=== PATIENT | male | born 1930 | race Caucasian/White ===

== ENCOUNTER 2016-08-31 11:43 | Emergency (ER) | payer OTHER ==
[~2016-08-31 11:43] MED LIST: ASPI1TAB PO; ASPI325T PO; ATEN25TA PO; CYAN25TA PO; SIMV10TA2 PO; TYLE325T5 PO; VITA100066 PO; VITATAB11 PO; nitroquick SL
--- NOTE | 2016-08-31 12:41 | EDDOCDS ---
Physician Documentation [facility] Name: Johnson Dockery Age: 85 yrs Sex: Male : 1930 Arrival Date: 08/31/2016 Time: 11:43 Bed Triage 1 Private MD: Abel Diaz A. Disposition: 08/31/16 12:31 Discharged to Home/Self Care. Impression: Encounter for change or removal of nonsurgical wound dressing. - Condition is Stable. - Discharge Instructions: Dressing Change, Wound Check. - Medication Reconciliation, Local Pharmacy Hours form. - Follow up: Toni Roman MD; When: Tomorrow; Reason: Recheck today's complaints, Continuance of care. Follow up: Emergency Department; When: As needed; Reason: Worsening of conditions. - Problem is new. - Symptoms are unchanged. - Notes: If you are unable to see Dr Roman tomorrow, please return to the ER for re-evaluation. Historical: - Allergies: Plavix; - Home Meds: 1. aspirin 325 mg Oral tab 1 tab once daily 2. atenolol 25 mg Oral tab 1 tab once daily 3. simvastatin 10 mg Oral tab 1 tab once daily 4. vitamin B complex oral cap 1 cap daily 5. Vitamin D Oral 2000 unit daily - PMHx: AAA; Hypercholesterolemia; Hypertension; [place] (1991); - PSHx: bilateral hernia repair; AAA Repair; pilonidal cyst; Pacemaker Insertion; - Social history: Smoking status: Patient/guardian denies using No barriers to communication noted, The patient speaks fluent Czech. - : The pt / caregiver states he / she is not on anticoagulants. Home medication list is obtained from the patient. - Exposure Risk Screening:: None identified. Vital Signs: 08/31 11:45 BP 151 / 71; Pulse 75; Resp 18 S; Temp 94.5(T); Pulse Ox 99% on R/A; Weight 62.6 kg / gr2 138.01 lbs (R); Height 6 ft. 0 in. (182.88 cm) (R); Pain 3/10; 11:45 Body Mass Index 18.72 (62.60 kg, 182.88 cm) gr2 Signatures: Adeola Roberson RN RN Sneha Burks RN RN dls Mich, Zach, PA-C PA-C dk1 KEYSHAD
--- NOTE | 2016-08-31 12:41 | EDDOCDS ---
Nurse's Notes [facility] [place] Name: Johnson Dockery Age: 85 yrs Sex: Male : 1930 Arrival Date: 08/31/2016 Time: 11:43 Bed Triage 1 Private MD: Abel Diaz A. Diagnosis: Encounter for change or removal of nonsurgical wound dressing Presentation: 08/31 11:54 Presenting complaint: Patient states: Pt has hx of pilonidal cyst November 2014 2 weeks dls ago noticed blood in underwear has open draining wound ?. Adult Sepsis Screening: The patient does not have new or worsening altered mentation. Patient's respiratory rate is less than 22. Systolic blood pressure is greater than 100. Patient has a qSOFA score of 0- Negative Sepsis Screen. Suicide/Homicide risk assessment- the patient denies having any suicidal and/or homicidal ideations and does not present with any other emotional, behavioral or mental health complaints. 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 Transition of care: patient was not received from another setting of care. 11:54 Acuity: BRANDY Level 3 dls 11:54 Method Of Arrival: Walkin/Carried/Asstd dls Triage Assessment: 11:58 General: Appears in no apparent distress, well nourished, well groomed, Behavior is dls cooperative. Pain: Pain currently is 4 out of 10 on a pain scale. Historical: - Allergies: Plavix; - Home Meds: 1. aspirin 325 mg Oral tab 1 tab once daily 2. atenolol 25 mg Oral tab 1 tab once daily 3. simvastatin 10 mg Oral tab 1 tab once daily 4. vitamin B complex oral cap 1 cap daily 5. Vitamin D Oral 2000 unit daily - PMHx: AAA; Hypercholesterolemia; Hypertension; [place] (1991); - PSHx: bilateral hernia repair; AAA Repair; pilonidal cyst; Pacemaker Insertion; - Social history: Smoking status: Patient/guardian denies using No barriers to communication noted, The patient speaks fluent Libyan. - : The pt / caregiver states he / she is not on anticoagulants. Home medication list is obtained from the patient. - Exposure Risk Screening:: None identified. Vital Signs: 11:45 BP 151 / 71; Pulse 75; Resp 18 S; Temp 94.5(T); Pulse Ox 99% on R/A; Weight 62.6 kg gr2 (R); Height 6 ft. 0 in. (182.88 cm) (R); Pain 310; 11:45 Body Mass Index 18.72 (62.60 kg, 182.88 cm) gr2 Vitals: 11:45 Log In Time: August 31, 2016 at 11:45. gr2 ED Course: 11:44 Patient visited by Dae Harmon. gr2 11:44 Patient moved to Waiting gr2 11:45 Abel Diaz is Private Physician. gr2 11:47 Patient visited by Dae Harmon. gr2 11:47 Patient moved to Pre RCE gr2 11:56 Triage Initiated dls 12:08 Patient moved to Triage 1 ct3 12:18 Zach Epps PA-C is PHCP. dk1 12:18 Madiha Crowley MD is Attending Physician. dk1 12:18 Patient visited by Zach Epps PA-C. dk1 12:28 Wound care 2x2 and Telfa applied to open area on coccyx. kcs 12:30 Toni Roman MD is Referral Physician. dk1 Order Results: There are currently no results for this order. Outcome: 12:31 Discharge ordered by Provider. dk1 12:41 Patient left the ED. kcs Signatures: Adeola Roberson RN RN Sneha Burks RN RN dls Keyes, David, PA-C PA-C dk1 Missy Zavaleta, YARD HAND YARD HAND ct3 Dae Harmon gr2 MTDD
--- NOTE | 2016-09-02 13:41 | EDDOCDS ---
Physician Documentation [facility] Name: Johnson Dockery Age: 85 yrs Sex: Male : 1930 Arrival Date: 08/31/2016 Time: 11:43 Bed Triage 1 Private MD: Abel Diaz A. Disposition: 08/31/16 12:31 Discharged to Home/Self Care. Impression: Encounter for change or removal of nonsurgical wound dressing. - Condition is Stable. - Discharge Instructions: Dressing Change, Wound Check. - Medication Reconciliation, Local Pharmacy Hours form. - Follow up: Toni Roman MD; When: Tomorrow; Reason: Recheck today's complaints, Continuance of care. Follow up: Emergency Department; When: As needed; Reason: Worsening of conditions. - Problem is new. - Symptoms are unchanged. - Notes: If you are unable to see Dr Roman tomorrow, please return to the ER for re-evaluation. Historical: - Allergies: Plavix; - Home Meds: 1. aspirin 325 mg Oral tab 1 tab once daily 2. atenolol 25 mg Oral tab 1 tab once daily 3. simvastatin 10 mg Oral tab 1 tab once daily 4. vitamin B complex oral cap 1 cap daily 5. Vitamin D Oral 2000 unit daily - PMHx: AAA; Hypercholesterolemia; Hypertension; [place] (1991); - PSHx: bilateral hernia repair; AAA Repair; pilonidal cyst; Pacemaker Insertion; - Social history: Smoking status: Patient/guardian denies using No barriers to communication noted, The patient speaks fluent Tajik. - Family history: Not pertinent. - : The pt / caregiver states he / she is not on anticoagulants. Home medication list is obtained from the patient. - Exposure Risk Screening:: None identified. Vital Signs: 08/31 11:45 BP 151 / 71; Pulse 75; Resp 18 S; Temp 94.5(T); Pulse Ox 99% on R/A; Weight 62.6 kg / gr2 138.01 lbs (R); Height 6 ft. 0 in. (182.88 cm) (R); Pain 3/10; 11:45 Body Mass Index 18.72 (62.60 kg, 182.88 cm) gr2 MDM: 15:06 [facility] Payment Agreement was scanned into [employer] and attached to record. lg 09/01 02:22 T-Sheet-- Draft Copy was scanned into [employer] and attached to record. marietta 02:23 Financial registration complete. marietta Signatures: Adeola Roberson RN RN Sneha Burks RN RN dls Claudette Hu, Reg Reg lg Mich, Zach, PARenéeC PARenéeC dk1 Arel, Nissa mcmanus The chart was reviewed and I authenticate all verbal orders and agree with the evaluation and treatment provided.Attachments: 08/31 15:06 [facility] [place] Agreement 09/01 02:22 T-Sheet-- Draft Copy marietta Chart Complete MTDD
--- NOTE | 2016-09-02 13:41 | EDDOCDS ---
Physician Documentation [facility] Name: Johnson Dockery Age: 85 yrs Sex: Male : 1930 Arrival Date: 08/31/2016 Time: 11:43 Bed Triage 1 Private MD: Abel Diaz A. Disposition: 08/31/16 12:31 Discharged to Home/Self Care. Impression: Encounter for change or removal of nonsurgical wound dressing. - Condition is Stable. - Discharge Instructions: Dressing Change, Wound Check. - Medication Reconciliation, Local Pharmacy Hours form. - Follow up: Toni Roman MD; When: Tomorrow; Reason: Recheck today's complaints, Continuance of care. Follow up: Emergency Department; When: As needed; Reason: Worsening of conditions. - Problem is new. - Symptoms are unchanged. - Notes: If you are unable to see Dr Roman tomorrow, please return to the ER for re-evaluation. Historical: - Allergies: Plavix; - Home Meds: 1. aspirin 325 mg Oral tab 1 tab once daily 2. atenolol 25 mg Oral tab 1 tab once daily 3. simvastatin 10 mg Oral tab 1 tab once daily 4. vitamin B complex oral cap 1 cap daily 5. Vitamin D Oral 2000 unit daily - PMHx: AAA; Hypercholesterolemia; Hypertension; [place] (1991); - PSHx: bilateral hernia repair; AAA Repair; pilonidal cyst; Pacemaker Insertion; - Social history: Smoking status: Patient/guardian denies using No barriers to communication noted, The patient speaks fluent Albanian. - Family history: Not pertinent. - : The pt / caregiver states he / she is not on anticoagulants. Home medication list is obtained from the patient. - Exposure Risk Screening:: None identified. Vital Signs: 08/31 11:45 BP 151 / 71; Pulse 75; Resp 18 S; Temp 94.5(T); Pulse Ox 99% on R/A; Weight 62.6 kg / gr2 138.01 lbs (R); Height 6 ft. 0 in. (182.88 cm) (R); Pain 3/10; 11:45 Body Mass Index 18.72 (62.60 kg, 182.88 cm) gr2 MDM: 15:06 [facility] Payment Agreement was scanned into MEDHOST and attached to record. lg 09/01 02:22 T-Sheet-- Draft Copy was scanned into [employer] and attached to record. marietta 02:23 Financial registration complete. marietta Signatures: Adeola Roberson RN RN Sneha Burks RN RN dls Claudette Hu, Reg Reg lg Mich, Zach, PARenéeC PARenéeC dk1 Arel, Nissa mcmanus The chart was reviewed and I authenticate all verbal orders and agree with the evaluation and treatment provided.Attachments: 08/31 15:06 [facility] [place] Payment Agreement 09/01 02:22 T-Sheet-- Draft Copy marietta Chart Complete MTDD
--- NOTE | 2016-09-02 13:41 | EDDOCDS ---
Nurse's Notes [facility] Name: Johnson Dockery Age: 85 yrs Sex: Male : 1930 Arrival Date: 08/31/2016 Time: 11:43 Bed Triage 1 Private MD: Abel Diaz A. Diagnosis: Encounter for change or removal of nonsurgical wound dressing Presentation: 08/31 11:54 Presenting complaint: Patient states: Pt has hx of pilonidal cyst November 2014 2 weeks dls ago noticed blood in underwear has open draining wound ?. Adult Sepsis Screening: The patient does not have new or worsening altered mentation. Patient's respiratory rate is less than 22. Systolic blood pressure is greater than 100. Patient has a qSOFA score of 0- Negative Sepsis Screen. Suicide/Homicide risk assessment- the patient denies having any suicidal and/or homicidal ideations and does not present with any other emotional, behavioral or mental health complaints. 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 Transition of care: patient was not received from another setting of care. 11:54 Acuity: BRANDY Level 3 dls 11:54 Method Of Arrival: Walkin/Carried/Asstd dls Triage Assessment: 11:58 General: Appears in no apparent distress, well nourished, well groomed, Behavior is dls cooperative. Pain: Pain currently is 4 out of 10 on a pain scale. Historical: - Allergies: Plavix; - Home Meds: 1. aspirin 325 mg Oral tab 1 tab once daily 2. atenolol 25 mg Oral tab 1 tab once daily 3. simvastatin 10 mg Oral tab 1 tab once daily 4. vitamin B complex oral cap 1 cap daily 5. Vitamin D Oral 2000 unit daily - PMHx: AAA; Hypercholesterolemia; Hypertension; [place] (1991); - PSHx: bilateral hernia repair; AAA Repair; pilonidal cyst; Pacemaker Insertion; - Social history: Smoking status: Patient/guardian denies using No barriers to communication noted, The patient speaks fluent Kuwaiti. - Family history: Not pertinent. - : The pt / caregiver states he / she is not on anticoagulants. Home medication list is obtained from the patient. - Exposure Risk Screening:: None identified. Screenin:30 Screening information is obtained from prior medical records. Fall risk: No risks kcs identified. Assistance ADL's: requires no assistance with activities of daily living. Abuse/DV Screen: The patient / caregiver reports he/she is: not in a situation that causes fear, pain or injury. Nutritional screening: No deficits noted. Advance Directives: Currently, there is no health care proxy. There is no living will. home support is adequate. Assessment: 12:30 Reassessment: Patient states feeling better. General: Appears comfortable, well kcs developed, well nourished, well groomed, Behavior is cooperative, pleasant. Pain: Location: coccyx. Neurological: Level of Consciousness is awake, alert. Respiratory: Airway is patent Respiratory effort is even, unlabored, Respiratory pattern is regular, symmetrical. Derm: Skin is intact, is healthy with good turgor, Skin is dry, Skin is normal. Vital Signs: 11:45 BP 151 / 71; Pulse 75; Resp 18 S; Temp 94.5(T); Pulse Ox 99% on R/A; Weight 62.6 kg gr2 (R); Height 6 ft. 0 in. (182.88 cm) (R); Pain 3/10; 11:45 Body Mass Index 18.72 (62.60 kg, 182.88 cm) gr2 Vitals: 11:45 Log In Time: August 31, 2016 at 11:45. gr2 ED Course: 11:44 Patient visited by Dae Harmon. gr2 11:44 Patient moved to Waiting gr2 11:45 Abel Diaz is Private Physician. gr2 11:47 Patient visited by Dae Harmon. gr2 11:47 Patient moved to Pre RCE gr2 11:56 Triage Initiated dls 12:08 Patient moved to Triage 1 ct3 12:18 Zach Epps PA-C is PHCP. dk1 12:18 Madiha Crowley MD is Attending Physician. dk1 12:18 Patient visited by Zach Epps PA-C. dk1 12:28 Wound care 2x2 and Telfa applied to open area on coccyx. kcs 12:30 Toni Roman MD is Referral Physician. dk1 12:30 The patient / caregiver is instructed regarding the plan of care and ED course. kcs 12:30 No IV's were initiated during this patient's visit. No procedures done that require kcs assistance. 15:06 [facility] Payment Agreement was scanned into [employer] and attached to record. corwin 09/01 02:22 T-Sheet-- Draft Copy was scanned into [employer] and attached to record. marietta Order Results: There are currently no results for this order. Outcome: 08/31 12:30 Discharge Assessment: Patient awake, alert and oriented x 3. No cognitive and/or kcs functional deficits noted. Patient verbalized understanding of disposition instructions. Patient awake and alert. patient administered narcotics - no. The following High Risk Discharge criteria are identified: None. Discharged to home ambulatory, with significant other. Condition: stable. Discharge instructions given to patient, Instructed on discharge instructions, follow up and referral plans. wound care, Demonstrated understanding of instructions, Pt was receptive of discharge instructions/ teaching. No special radiology studies were completed. Property sent home with patient. 12:31 Discharge ordered by Provider. dk1 12:41 Patient left the ED. kcs Signatures: Adeola Roberson, RN RN Sneha Burks RN RN dls Claudette Hu, Reg Reg lg Zach Epps, PA-C PA-C dk1 Missy Zavaleta, [facility] MANAGER ct3 Dae Harmon gr2 Nissa Castañeda Chart Complete MTDD
== END 2016-09-01 00:41 | disposition home or self-care (01) ==
LOC: M ED 11:43
DX: L05.91 Pilonidal cyst without abscess (principal); Z48.00 Encounter for change or removal of nonsurgical wound dressing; I71.4 Abdominal aortic aneurysm, without rupture; I10 Essential (primary) hypertension; I25.2 Old myocardial infarction; Z95.0 Presence of cardiac pacemaker; Z79.82 Long term (current) use of aspirin; Z79.899 Other long term (current) drug therapy; Z88.8 Allergy status to other drugs, medicaments and biological substances

== ENCOUNTER 2016-09-01 10:19 | Emergency (ER) | payer OTHER ==
--- NOTE | 2016-09-01 13:23 | EDDOCDS ---
Nurse's Notes [facility] Name: Johnson Dockery Age: 85 yrs Sex: Male : 1930 Arrival Date: 09/01/2016 Time: 10:19 Bed TR8 Private MD: Abel Diaz A. Diagnosis: Pressure ulcer of contiguous site of back, buttock and hip, stage 2 Presentation: 09/01 10:27 Presenting complaint: Patient states: returning as instructed - seen here yesterday for kcs wound on coccyx - tried to get into Dr. Roman today but was unable. States does not feel any better - feels the area is more red. Adult Sepsis Screening: The patient does not have new or worsening altered mentation. Patient's respiratory rate is less than 22. Systolic blood pressure is greater than 100. Patient has a qSOFA score of 0- Negative Sepsis Screen. Suicide/Homicide risk assessment- the patient denies having any suicidal and/or homicidal ideations and does not present with any other emotional, behavioral or mental health complaints. 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 Transition of care: patient was not received from another setting of care. 10:27 Acuity: BRANDY Level 3 kcs 10:27 Method Of Arrival: Walkin/Carried/Asstd kcs Triage Assessment: 10:29 General: Appears comfortable, slender, well developed, well nourished, well groomed, kcs Behavior is cooperative, pleasant. Pain: Denies pain. Neurological: Level of Consciousness is awake, alert. Respiratory: Airway is patent Respiratory effort is even, unlabored, Respiratory pattern is regular, symmetrical. Derm: Skin is intact, is healthy with good turgor, Skin is dry, Skin is normal. Historical: - Allergies: Plavix; - Home Meds: 1. aspirin 325 mg Oral tab 1 tab once daily 2. atenolol 25 mg Oral tab 1 tab once daily 3. simvastatin 10 mg Oral tab 1 tab once daily 4. vitamin B complex oral cap 1 cap daily 5. Vitamin D Oral 2000 unit daily - PMHx: AAA; Hypercholesterolemia; Hypertension; [place] (1991); - PSHx: bilateral hernia repair; AAA Repair; pilonidal cyst; Pacemaker Insertion; - Social history: Smoking status: Patient states former smoker of tobacco. No barriers to communication noted, The patient speaks fluent Indonesian. - Family history: No immediate family members are acutely ill. - : The pt / caregiver states he / she is not on anticoagulants. Home medication list is obtained from the patient, [employer] import data. - Exposure Risk Screening:: None identified. Screenin:20 Screening information is obtained from the patient. Fall risk: No risks identified. mb9 Assistance ADL's: requires no assistance with activities of daily living. Abuse/DV Screen: The patient / caregiver reports he/she is: not in a situation that causes fear, pain or injury. Nutritional screening: No deficits noted. Advance Directives: There is no active DNR order. home support is adequate. Assessment: 13:20 General: Appears in no apparent distress, Behavior is appropriate for age, cooperative. mb9 Respiratory: Airway is patent Respiratory effort is even, unlabored. Derm: Decubitus located on sacrum approximately 2.6 cm to 7.5 cm is stage II is draining small amount. Vital Signs: 10:21 BP 115 / 58; Pulse 77; Resp 18; Temp 96.9; Pulse Ox 99% ; Weight 61.23 kg; Height 6 ft. cmb 0 in. (182.88 cm); Pain 0/10; 12:50 BP 112 / 61; Pulse 73; Resp 18; Temp 97.8(TE); Pulse Ox 99% on R/A; Pain 1/10; ar3 10:21 Body Mass Index 18.31 (61.23 kg, 182.88 cm) cmb Vitals: 10:21 Log In Time: September 01, 2016 at 10:19. cmb ED Course: 10:20 Patient visited by Libby Hsu. cmb 10:20 Abel Diaz is Private Physician. cmb 10:20 Patient moved to Waiting cmb 10:23 Patient moved to Pre RCE cmb 10:28 Triage Initiated kcs 10:50 Patient moved to Triage 3 ar3 10:54 [facility] ar2 10:54 Shirin Tellez MD is Attending Physician. ar2 10:54 Patient visited by Watson Valle PA-C. ar2 10:54 Marielos Smith CNM is Referral Physician. ar2 11:24 Patient moved to PR2 / ar2 12:45 Hussein Warren is Referral Physician. ar2 12:51 Patient visited by Saima Davis PCA. ar3 13:16 Patient moved to TR8 mb9 13:20 The patient / caregiver is instructed regarding the plan of care and ED course. mb9 13:20 No IV's were initiated during this patient's visit. No procedures done that require mb9 assistance. Dressings: Tegaderm X 1; 4X4s X 1; dressing applied to saccrum. Order Results: There are currently no results for this order. Outcome: 10:55 Discharge ordered by Provider. ar2 12:46 Discharge ordered by Provider. ar2 13:20 Discharge Assessment: Patient awake, alert and oriented x 3. No cognitive and/or mb9 functional deficits noted. Patient verbalized understanding of disposition instructions. patient administered narcotics - no. The following High Risk Discharge criteria are identified: None. Condition: good Condition: stable Condition: improved. Discharge instructions given to patient, Instructed on discharge instructions, follow up and referral plans. medication usage, wound care, Demonstrated understanding of instructions, medications, Pt was receptive of discharge instructions/ teaching. Prescriptions given X 1. No special radiology studies were completed. Property :Personal belongings accompany Pt. 13:22 Patient left the ED. mb9 Signatures: Adeola Roberson, RN RN Watson Tran PA-C PA-C ar2 Saima Davis PCA PCA ar3 Libby Hsu Michael, RN RN mb9 MTDD
--- NOTE | 2016-09-01 13:23 | EDDOCDS ---
Physician Documentation [facility] Name: Johnson Dockery Age: 85 yrs Sex: Male : 1930 Arrival Date: 09/01/2016 Time: 10:19 Bed TR8 Private MD: Abel Diaz A. Disposition: 09/01/16 12:46 Discharged to Home/Self Care. Impression: Pressure ulcer of contiguous site of back, buttock and hip, stage 2. - Condition is Stable. - Discharge Instructions: Pressure Ulcer, Dressing Change. - Prescriptions for Neosporin (marito- sandra-polym) 3.5mg-400 unit- 5,000 unit/gram Topical Ointment - apply to affected area 1 application by TOPICAL route 2 times per day; 15 gram. - Medication Reconciliation, Local Pharmacy Hours form. - Follow up: Hussein Warren; When: Call to arrange an appointment; Reason: Recheck today's complaints. Follow up: Emergency Department; When: As needed; Reason: Fever > 102F, Worsening of conditions. - Problem is new. - Symptoms are unchanged. - Notes: change dressing once daily or more often as needed. apply antibiotic ointment with each dressing change. sit in inflatable donut while sitting during the day. place pillows under area at night. call Dr. Warren's office for follow up Historical: - Allergies: Plavix; - Home Meds: 1. aspirin 325 mg Oral tab 1 tab once daily 2. atenolol 25 mg Oral tab 1 tab once daily 3. simvastatin 10 mg Oral tab 1 tab once daily 4. vitamin B complex oral cap 1 cap daily 5. Vitamin D Oral 2000 unit daily - PMHx: AAA; Hypercholesterolemia; Hypertension; [place] (1991); - PSHx: bilateral hernia repair; AAA Repair; pilonidal cyst; Pacemaker Insertion; - Social history: Smoking status: Patient states former smoker of tobacco. No barriers to communication noted, The patient speaks fluent Estonian. - Family history: No immediate family members are acutely ill. - : The pt / caregiver states he / she is not on anticoagulants. Home medication list is obtained from the patient, [employer] import data. - Exposure Risk Screening:: None identified. Vital Signs: 09/01 10:21 BP 115 / 58; Pulse 77; Resp 18; Temp 96.9; Pulse Ox 99% ; Weight 61.23 kg / 134.99 lbs; cmb Height 6 ft. 0 in. (182.88 cm); Pain 0/10; 12:50 BP 112 / 61; Pulse 73; Resp 18; Temp 97.8(TE); Pulse Ox 99% on R/A; Pain 1/10; ar3 10:21 Body Mass Index 18.31 (61.23 kg, 182.88 cm) cmb MDM: 11:22 Financial registration complete. 12:47 Dressing ordered. ar2 Signatures: Adeola Roberson, RN RN kcs Claudette Hu, Reg Reg lg Watson Valle, PA-C PA-C ar2 Pedro GoodenRN RN mb9 MTDD
--- NOTE | 2016-09-03 14:24 | EDDOCDS ---
Nurse's Notes [facility] Name: Johnson Dockery Age: 85 yrs Sex: Male : 1930 Arrival Date: 09/01/2016 Time: 10:19 Bed TR8 Private MD: Abel Diaz A. Diagnosis: Pressure ulcer of contiguous site of back, buttock and hip, stage 2 Presentation: 09/01 10:27 Presenting complaint: Patient states: returning as instructed - seen here yesterday for kcs wound on coccyx - tried to get into Dr. Roman today but was unable. States does not feel any better - feels the area is more red. Adult Sepsis Screening: The patient does not have new or worsening altered mentation. Patient's respiratory rate is less than 22. Systolic blood pressure is greater than 100. Patient has a qSOFA score of 0- Negative Sepsis Screen. Suicide/Homicide risk assessment- the patient denies having any suicidal and/or homicidal ideations and does not present with any other emotional, behavioral or mental health complaints. 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 Transition of care: patient was not received from another setting of care. 10:27 Acuity: BRANDY Level 3 kcs 10:27 Method Of Arrival: Walkin/Carried/Asstd kcs Triage Assessment: 10:29 General: Appears comfortable, slender, well developed, well nourished, well groomed, kcs Behavior is cooperative, pleasant. Pain: Denies pain. Neurological: Level of Consciousness is awake, alert. Respiratory: Airway is patent Respiratory effort is even, unlabored, Respiratory pattern is regular, symmetrical. Derm: Skin is intact, is healthy with good turgor, Skin is dry, Skin is normal. Historical: - Allergies: Plavix; - Home Meds: 1. aspirin 325 mg Oral tab 1 tab once daily 2. atenolol 25 mg Oral tab 1 tab once daily 3. simvastatin 10 mg Oral tab 1 tab once daily 4. vitamin B complex oral cap 1 cap daily 5. Vitamin D Oral 2000 unit daily - PMHx: AAA; Hypercholesterolemia; Hypertension; [place] (1991); - PSHx: bilateral hernia repair; AAA Repair; pilonidal cyst; Pacemaker Insertion; - Social history: Smoking status: Patient states former smoker of tobacco. No barriers to communication noted, The patient speaks fluent Danish. - Family history: No immediate family members are acutely ill. - : The pt / caregiver states he / she is not on anticoagulants. Home medication list is obtained from the patient, [employer] import data. - Exposure Risk Screening:: None identified. Screenin:20 Screening information is obtained from the patient. Fall risk: No risks identified. mb9 Assistance ADL's: requires no assistance with activities of daily living. Abuse/DV Screen: The patient / caregiver reports he/she is: not in a situation that causes fear, pain or injury. Nutritional screening: No deficits noted. Advance Directives: There is no active DNR order. home support is adequate. Assessment: 13:20 General: Appears in no apparent distress, Behavior is appropriate for age, cooperative. mb9 Respiratory: Airway is patent Respiratory effort is even, unlabored. Derm: Decubitus located on sacrum approximately 2.6 cm to 7.5 cm is stage II is draining small amount. Vital Signs: 10:21 BP 115 / 58; Pulse 77; Resp 18; Temp 96.9; Pulse Ox 99% ; Weight 61.23 kg; Height 6 ft. cmb 0 in. (182.88 cm); Pain 0/10; 12:50 BP 112 / 61; Pulse 73; Resp 18; Temp 97.8(TE); Pulse Ox 99% on R/A; Pain 1/10; ar3 10:21 Body Mass Index 18.31 (61.23 kg, 182.88 cm) cmb Vitals: 10:21 Log In Time: September 01, 2016 at 10:19. cmb ED Course: 10:20 Patient visited by Libby Hsu. cmb 10:20 Abel Diza is Private Physician. cmb 10:20 Patient moved to Waiting cmb 10:23 Patient moved to Pre RCE cmb 10:28 Triage Initiated kcs 10:50 Patient moved to Triage 3 ar3 10:54 [facility] ar2 10:54 Shirin Tellez MD is Attending Physician. ar2 10:54 Patient visited by Watson Valle PA-C. ar2 10:54 Marielos Smith CNM is Referral Physician. ar2 11:24 Patient moved to PR2 / ar2 12:45 Hussein Warren is Referral Physician. ar2 12:51 Patient visited by Saima Davis PCA. ar3 13:16 Patient moved to TR8 mb9 13:20 The patient / caregiver is instructed regarding the plan of care and ED course. mb9 13:20 No IV's were initiated during this patient's visit. No procedures done that require mb9 assistance. Dressings: Tegaderm X 1; 4X4s X 1; dressing applied to saccrum. 09/02 07:50 [facility] Payment Agreement was scanned into [employer] and attached to record. lg 11:57 T-Sheet-- Draft Copy was scanned into [employer] and attached to record. gb Order Results: There are currently no results for this order. Outcome: 09/01 10:55 Discharge ordered by Provider. ar2 12:46 Discharge ordered by Provider. ar2 13:20 Discharge Assessment: Patient awake, alert and oriented x 3. No cognitive and/or mb9 functional deficits noted. Patient verbalized understanding of disposition instructions. patient administered narcotics - no. The following High Risk Discharge criteria are identified: None. Condition: good Condition: stable Condition: improved. Discharge instructions given to patient, Instructed on discharge instructions, follow up and referral plans. medication usage, wound care, Demonstrated understanding of instructions, medications, Pt was receptive of discharge instructions/ teaching. Prescriptions given X 1. No special radiology studies were completed. Property :Personal belongings accompany Pt. 13:22 Patient left the ED. mb9 Signatures: Adeola Roberson, RN RN [facility] Giana Lezama, Reg Reg gb Claudette Hu, Reg Reg lg Watson Valle PA-C PA-C ar2 Saima Davis PCA PCA ar3 Libby Hsu Michael, RN RN mb9 Chart Complete MTDD
--- NOTE | 2016-09-03 14:24 | EDDOCDS ---
Physician Documentation [facility] Name: Johnson Dockery Age: 85 yrs Sex: Male : 1930 Arrival Date: 09/01/2016 Time: 10:19 Bed TR8 Private MD: Abel Diaz A. Disposition: 09/01/16 12:46 Discharged to Home/Self Care. Impression: Pressure ulcer of contiguous site of back, buttock and hip, stage 2. - Condition is Stable. - Discharge Instructions: Pressure Ulcer, Dressing Change. - Prescriptions for Neosporin (marito- sandra-polym) 3.5mg-400 unit- 5,000 unit/gram Topical Ointment - apply to affected area 1 application by TOPICAL route 2 times per day; 15 gram. - Medication Reconciliation, Local Pharmacy Hours form. - Follow up: Hussein Warren; When: Call to arrange an appointment; Reason: Recheck today's complaints. Follow up: Emergency Department; When: As needed; Reason: Fever > 102F, Worsening of conditions. - Problem is new. - Symptoms are unchanged. - Notes: change dressing once daily or more often as needed. apply antibiotic ointment with each dressing change. sit in inflatable donut while sitting during the day. place pillows under area at night. call Dr. Warren's office for follow up Historical: - Allergies: Plavix; - Home Meds: 1. aspirin 325 mg Oral tab 1 tab once daily 2. atenolol 25 mg Oral tab 1 tab once daily 3. simvastatin 10 mg Oral tab 1 tab once daily 4. vitamin B complex oral cap 1 cap daily 5. Vitamin D Oral 2000 unit daily - PMHx: AAA; Hypercholesterolemia; Hypertension; [place] (1991); - PSHx: bilateral hernia repair; AAA Repair; pilonidal cyst; Pacemaker Insertion; - Social history: Smoking status: Patient states former smoker of tobacco. No barriers to communication noted, The patient speaks fluent Maltese. - Family history: No immediate family members are acutely ill. - : The pt / caregiver states he / she is not on anticoagulants. Home medication list is obtained from the patient, [employer] import data. - Exposure Risk Screening:: None identified. Vital Signs: 09/01 10:21 BP 115 / 58; Pulse 77; Resp 18; Temp 96.9; Pulse Ox 99% ; Weight 61.23 kg / 134.99 lbs; cmb Height 6 ft. 0 in. (182.88 cm); Pain 0/10; 12:50 BP 112 / 61; Pulse 73; Resp 18; Temp 97.8(TE); Pulse Ox 99% on R/A; Pain 1/10; ar3 10:21 Body Mass Index 18.31 (61.23 kg, 182.88 cm) cmb MDM: 11:22 Financial registration complete. lg 12:47 Dressing ordered. ar2 09/02 07:50 [facility] Payment Agreement was scanned into [employer] and attached to record. lg 11:57 T-Sheet-- Draft Copy was scanned into [employer] and attached to record. gb Signatures: Adeola Roberson, RN RN kcs Giana Lezama, Reg Reg gb Claudette Hu, Reg Reg lg Watson Valle, PA-C PA-C ar2 Pedro Gooden RN RN mb9 The chart was reviewed and I authenticate all verbal orders and agree with the evaluation and treatment provided.Attachments: 07:50 [facility] Payment Agreement lg 11:57 T-Sheet-- Draft Copy gb Chart Complete MTDD
--- NOTE | 2016-09-03 14:24 | EDDOCDS ---
Physician Documentation [facility] Name: Johnson Dockery Age: 85 yrs Sex: Male : 1930 Arrival Date: 09/01/2016 Time: 10:19 Bed TR8 Private MD: Abel Diaz A. Disposition: 09/01/16 12:46 Discharged to Home/Self Care. Impression: Pressure ulcer of contiguous site of back, buttock and hip, stage 2. - Condition is Stable. - Discharge Instructions: Pressure Ulcer, Dressing Change. - Prescriptions for Neosporin (marito- sandra-polym) 3.5mg-400 unit- 5,000 unit/gram Topical Ointment - apply to affected area 1 application by TOPICAL route 2 times per day; 15 gram. - Medication Reconciliation, Local Pharmacy Hours form. - Follow up: Hussein Warren; When: Call to arrange an appointment; Reason: Recheck today's complaints. Follow up: Emergency Department; When: As needed; Reason: Fever > 102F, Worsening of conditions. - Problem is new. - Symptoms are unchanged. - Notes: change dressing once daily or more often as needed. apply antibiotic ointment with each dressing change. sit in inflatable donut while sitting during the day. place pillows under area at night. call Dr. Warren's office for follow up Historical: - Allergies: Plavix; - Home Meds: 1. aspirin 325 mg Oral tab 1 tab once daily 2. atenolol 25 mg Oral tab 1 tab once daily 3. simvastatin 10 mg Oral tab 1 tab once daily 4. vitamin B complex oral cap 1 cap daily 5. Vitamin D Oral 2000 unit daily - PMHx: AAA; Hypercholesterolemia; Hypertension; [place] (1991); - PSHx: bilateral hernia repair; AAA Repair; pilonidal cyst; Pacemaker Insertion; - Social history: Smoking status: Patient states former smoker of tobacco. No barriers to communication noted, The patient speaks fluent Burundian. - Family history: No immediate family members are acutely ill. - : The pt / caregiver states he / she is not on anticoagulants. Home medication list is obtained from the patient, [employer] import data. - Exposure Risk Screening:: None identified. Vital Signs: 09/01 10:21 BP 115 / 58; Pulse 77; Resp 18; Temp 96.9; Pulse Ox 99% ; Weight 61.23 kg / 134.99 lbs; cmb Height 6 ft. 0 in. (182.88 cm); Pain 0/10; 12:50 BP 112 / 61; Pulse 73; Resp 18; Temp 97.8(TE); Pulse Ox 99% on R/A; Pain 1/10; ar3 10:21 Body Mass Index 18.31 (61.23 kg, 182.88 cm) cmb MDM: 11:22 Financial registration complete. lg 12:47 Dressing ordered. ar2 09/02 07:50 [facility] Payment Agreement was scanned into [employer] and attached to record. lg 11:57 T-Sheet-- Draft Copy was scanned into [employer] and attached to record. gb Signatures: Adeola Roberson, RN RN kcs Giana Lezama, Reg Reg gb Claudette Hu, Reg Reg lg Watson Valle, PA-C PA-C ar2 Pedro Gooden RN RN mb9 The chart was reviewed and I authenticate all verbal orders and agree with the evaluation and treatment provided.Attachments: 07:50 [facility] Payment Agreement lg 11:57 T-Sheet-- Draft Copy gb Chart Complete MTDD
== END 2016-09-01 13:22 | disposition home or self-care (01) ==
LOC: M ED 10:19
DX: L89.42 Pressure ulcer of contiguous site of back, buttock and hip, stage 2 (principal); I71.4 Abdominal aortic aneurysm, without rupture; E78.00 Pure hypercholesterolemia, unspecified; I10 Essential (primary) hypertension; I25.2 Old myocardial infarction; Z87.891 Personal history of nicotine dependence; Z79.82 Long term (current) use of aspirin; Z79.899 Other long term (current) drug therapy; Z88.8 Allergy status to other drugs, medicaments and biological substances

== ENCOUNTER 2017-05-19 08:27 | Day surgery (SDC) | payer OTHER ==
[~2017-05-19] VITALS: Ht 182.9 cm; Wt 65.8 kg
[~2017-05-19 08:27] MED LIST changes: +BSS with VANC/TOB/EPI for EYE CASES IR ONE; +CYCLOPENTOLATE 2% OPHTH SOLN 2ML BTL XX ONE; +FLOM5CAP PO; +HEALON DUET (HEALON 10MG/ML 0.55ML & HEALON ENDOCOAT 30MG/ML 0.85ML) As Ordered ONE; +LIDOCAINE 1% SDV 5 ML VIAL As Ordered ONE; +LIDOCAINE 3.5 % 1ML OPHTH TOPICAL GEL OU ONE; +MOXIFLOXACIN IN BSS 0.25MG/0.25ML INTRACAMERAL INJ (OR EYE ONLY)(J2280) As Ordered ONE; +OFLOXACIN 0.3 % (OCUFLOX) OPTH SOL 5ML XX ONE; +PHENYLEPHRINE 2.5% OPHTH SOL 2ML XX ONE; +POVIDONE-IODINE 5% OPHTH PREP SOL 30ML As Ordered ONE; +TRIAMCINOLONE PRES FR 40 MG/ML 1ML(TRIESENCE)(OR EYE ONLY)(J3300 PER 1MG) As Ordered ONE; +TROPICAMIDE 1% OPHTH SOLN 2ML XX ONE
[2017-05-19] MEDS ORDERED: LR 500 ML IV ONE (09:00)
[2017-05-19] MEDS ORDERED: MIDAZOLAM INJ 2 MG/2 ML VIAL (J2250) As Ordered ONE (09:08)
[2017-05-19] MEDS ORDERED: fentaNYL 100 MCG/2 ML INJECTION (J3010) As Ordered ONE (09:08)
[2017-05-19 09:50] VITALS: BP 123/58
--- NOTE | 2017-05-19 11:37 | RO ---
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 PROCEDURE: Phacoemulsification with intraocular lens implantation of Hoya power 20 diopters and placement of the Malyugin ring 7 mm. SURGEON: Dr. Christopher Potter ORTHOPAEDIC DOCTOR: None. COMPLICATIONS: None. ANESTHESIA: local IV standby DESCRIPTION OF PROCEDURE: The patient was brought to the operating room and laid in supine position. The right eye was prepped and draped in a sterile fashion for ophthalmic surgery and a lid speculum was placed. [place] incision was made and EndoCoat was injected into the anterior chamber. Temporal clear corneal incision was then made with a 2.5 mm keratome. Before the capsulorrhexis, the pupil was dilated using Malyugin ring, 7 mm. Capsulorrhexis was then done followed by hydrodissection. Phacoemulsification was done in divide and conquer method followed by aspiration of the cortex. Healon was placed in the capsular bag, intraocular lens inserted and the Malyugin ring removed. The wound was hydrated. Excess viscoelastic was aspirated prior to that. Intracameral moxifloxacin was given. Subtenon triamcinolone was given. At the end of the case, lid speculum removed. The patient returned to the recovery room in stable condition. MARY IMOGENE BASSETT HOSPITALAlvina
== END 2017-05-19 10:20 | disposition home or self-care (01) ==
LOC: M SDC 08:27
PROVIDERS: ATTEND Ophthalmology
DX: H26.9 Unspecified cataract (principal); H57.03 Miosis; H21.81 Floppy iris syndrome; I25.10 Atherosclerotic heart disease of native coronary artery without angina pectoris; I25.2 Old myocardial infarction; I10 Essential (primary) hypertension; E78.00 Pure hypercholesterolemia, unspecified; N40.0 Benign prostatic hyperplasia without lower urinary tract symptoms; Z88.8 Allergy status to other drugs, medicaments and biological substances; Z79.899 Other long term (current) drug therapy; Z79.82 Long term (current) use of aspirin; Z85.828 Personal history of other malignant neoplasm of skin; Z95.0 Presence of cardiac pacemaker; Z95.5 Presence of coronary angioplasty implant and graft; Z87.891 Personal history of nicotine dependence
CPT/HCPCS: 66982; J2250; J2280; J3010; J3300; V2632

== ENCOUNTER → 2017-10-01 | Outpatient (CLI) | payer OTHER ==
[2017-10-01 10:17] LABS: BASO # 0.1 10^3/uL (0.0-0.2); BASO % 0.6 % (0.0-1.0); EOS # 0.4 10^3/uL (0.0-0.50); EOS % 4.5 % (0.0-3.0); HEMATOCRIT 46.8 % (42.0-52.0); HEMOGLOBIN 15.2 g/dl (14.0-18.0); IMMATURE GRANULOCYTE # 0.1 10^3/uL (0-0); IMMATURE GRANULOCYTE % 0.7 % (0-0); LYMPH # 1.2 10^3/uL (1.5-4.5); LYMPH % 13.3 % (24.0-44.0); MEAN CORPUSCULAR HEMOGLOBIN 31.3 pg (27.0-33.0); MEAN CORPUSCULAR HGB CONC 32.5 g/dl (32.0-36.5); MEAN CORPUSCULAR VOLUME 96.5 fl (80.0-96.0); MONO # 0.7 10^3/uL (0.0-0.8); MONO % 7.9 % (0.0-5.0); NEUTROPHILS # 6.5 10^3/uL (1.8-7.7); PLATELET COUNT, AUTOMATED 152 10^3/uL (150-450); RED BLOOD COUNT 4.85 10^6/uL (4.30-6.10); RED CELL DISTRIBUTION WIDTH 13.4 % (11.5-14.5)
[2017-10-01 10:45] LABS: ALBUMIN/GLOBULIN RATIO 1.25 (1.00-1.93); ALKALINE PHOSPHATASE 78 U/L (45-117); ALT/SGPT 20 U/L (12-78); ANION GAP 7 MEQ/L (8-16); AST/SGOT 21 U/L (7-37); BILIRUBIN,TOTAL 1.5 MG/DL (0.2-1.0); BLOOD UREA NITROGEN 31 MG/DL (7-18); CARBON DIOXIDE LEVEL 27 MEQ/L (21-32); CHLORIDE LEVEL 108 MEQ/L (98-107); CHOLESTEROL LEVEL 145 MG/DL (<200); CHOLESTEROL RISK RATIO 2.843 (<5); CREATININE FOR GFR 1.15 MG/DL (0.70-1.30); GLOMERULAR FILTRATION RATE > 60.0 (>35); GLUCOSE, FASTING 92 MG/DL (70-100); HDL CHOLESTEROL 51 MG/DL (>40); NON-HDL-C 94 MG/DL; POTASSIUM SERUM 4.3 MEQ/L (3.5-5.1); PSA SCREENING 4.66 NG/ML (< 4.0); SODIUM LEVEL 142 MEQ/L (136-145); TOTAL PROTEIN 7.2 GM/DL (6.4-8.2); TRIGLYCERIDES LEVEL 75 MG/DL (<150)
[2017-10-01 12:57] LABS: TOTAL 25(OH) VITAMIN D 70.8 NG/ML (30.0-100.0)
== END ==
LOC: M LAB 09:13
DX: I25.10 Atherosclerotic heart disease of native coronary artery without angina pectoris (principal)
CPT/HCPCS: 80053

== ENCOUNTER → 2017-10-14 | Outpatient (CLI) | payer OTHER | LOC: M RAD 08:14 | DX: I71.4 Abdominal aortic aneurysm, without rupture (principal) | CPT/HCPCS: 76775 ==

== ENCOUNTER 2018-01-17 06:55 | Day surgery (SDC) | payer OTHER ==
[~2018-01-17 06:55] MED LIST changes: +ACETAMINOPHEN 325 MG TAB PO; -ASPI1TAB PO; -ASPI325T PO; -ATEN25TA PO; -BSS with VANC/TOB/EPI for EYE CASES IR ONE; -CYAN25TA PO; -CYCLOPENTOLATE 2% OPHTH SOLN 2ML BTL XX ONE; -FLOM5CAP PO; -HEALON DUET (HEALON 10MG/ML 0.55ML & HEALON ENDOCOAT 30MG/ML 0.85ML) As Ordered ONE; -LIDOCAINE 1% SDV 5 ML VIAL As Ordered ONE; -LIDOCAINE 3.5 % 1ML OPHTH TOPICAL GEL OU ONE; -MOXIFLOXACIN IN BSS 0.25MG/0.25ML INTRACAMERAL INJ (OR EYE ONLY)(J2280) As Ordered ONE; -OFLOXACIN 0.3 % (OCUFLOX) OPTH SOL 5ML XX ONE; -PHENYLEPHRINE 2.5% OPHTH SOL 2ML XX ONE; -POVIDONE-IODINE 5% OPHTH PREP SOL 30ML As Ordered ONE; -SIMV10TA2 PO; -TRIAMCINOLONE PRES FR 40 MG/ML 1ML(TRIESENCE)(OR EYE ONLY)(J3300 PER 1MG) As Ordered ONE; -TROPICAMIDE 1% OPHTH SOLN 2ML XX ONE; -TYLE325T5 PO; -VITA100066 PO; -VITATAB11 PO; -nitroquick SL
[2018-01-17] MEDS ORDERED: TRIAMCINOLONE PRES FR 40 MG/ML 1ML(TRIESENCE)(OR EYE ONLY)(J3300 PER 1MG) As Ordered (06:56)
[2018-01-17] MEDS ORDERED: MOXIFLOXACIN IN BSS 0.25MG/0.25ML INTRACAMERAL INJ (OR EYE ONLY)(J2280) As Ordered (06:56)
[2018-01-17] MEDS ORDERED: LIDOCAINE 1% SDV 5 ML VIAL As Ordered (06:56)
[2018-01-17] MEDS ORDERED: HEALON DUET (HEALON 10MG/ML 0.55ML & HEALON ENDOCOAT 30MG/ML 0.85ML) As Ordered (06:56)
[2018-01-17] MEDS ORDERED: POVIDONE-IODINE 5% OPHTH PREP SOL 30ML As Ordered (06:56)
[2018-01-17] MEDS ORDERED: BSS with VANC/TOB/EPI for EYE CASES IR (07:00)
[2018-01-17] MEDS ORDERED: PHENYLEPHRINE HCL 10 % OPHTH. SOL 5ML OD (07:00)
[2018-01-17] MEDS ORDERED: TRIMETHOBENZAMIDE 300 MG CAP PO (07:15)
[2018-01-17] MEDS: PHENYLEPHRINE 2.5% OPHTH SOL 2ML OD (07:22)
[2018-01-17] MEDS: CYCLOPENTOLATE 2% OPHTH SOLN 2ML BTL OD (07:22)
[2018-01-17] MEDS: OFLOXACIN 0.3 % (OCUFLOX) OPTH SOL 5ML OD (07:23)
[2018-01-17] MEDS: LIDOCAINE 3.5 % 1ML OPHTH TOPICAL GEL OU (07:23)
[2018-01-17] MEDS: TROPICAMIDE 1% OPHTH SOLN 2ML OD (07:23)
[2018-01-17] MEDS ORDERED: fentaNYL 100 MCG/2 ML INJECTION (J3010) As Ordered (11:33)
[2018-01-17] MEDS ORDERED: MIDAZOLAM INJ 2 MG/2 ML VIAL (J2250) As Ordered (11:33)
[2018-01-17] MEDS: AcetaZOLAMIDE 500 MG ER CAP PO (12:19)
== END 2018-01-17 12:40 | disposition home or self-care (01) ==
LOC: M SDC 06:55
DX: H26.9 Unspecified cataract (principal); I25.10 Atherosclerotic heart disease of native coronary artery without angina pectoris; I25.2 Old myocardial infarction; Z95.0 Presence of cardiac pacemaker; Z95.5 Presence of coronary angioplasty implant and graft; I11.9 Hypertensive heart disease without heart failure; N40.0 Benign prostatic hyperplasia without lower urinary tract symptoms; Z79.899 Other long term (current) drug therapy; Z79.82 Long term (current) use of aspirin; Z88.8 Allergy status to other drugs, medicaments and biological substances
CPT/HCPCS: 66984

== ENCOUNTER 2018-01-31 20:15 | Emergency (ER) | payer OTHER ==
[2018-01-31] MEDS: METHOCARBAMOL 750 MG TAB PO (22:08)
[2018-01-31] MEDS: ACETAMINOPH W/CODEINE #3 TAB UD PO (22:08)
[2018-01-31] MEDS: predniSONE 20 MG TAB PO (23:53)
[2018-01-31] MEDS: NORCO 5/325MG TABLET (BULK FOR ED) PO (23:53)
== END 2018-02-01 00:05 | disposition home or self-care (01) ==
LOC: M ED 02-01 00:05
DX: S16.1XXA Strain of muscle, fascia and tendon at neck level, initial encounter (principal); X58.XXXA Exposure to other specified factors, initial encounter; Y92.89 Other specified places as the place of occurrence of the external cause; I10 Essential (primary) hypertension; E78.5 Hyperlipidemia, unspecified; I25.2 Old myocardial infarction; Z95.5 Presence of coronary angioplasty implant and graft; Z87.891 Personal history of nicotine dependence; Z88.8 Allergy status to other drugs, medicaments and biological substances; Z79.899 Other long term (current) drug therapy; Z79.82 Long term (current) use of aspirin
CPT/HCPCS: 76775

== ENCOUNTER → 2018-08-08 | Outpatient (CLI) | payer OTHER | LOC: M RAD 06:35 | DX: I71.4 Abdominal aortic aneurysm, without rupture (principal) | CPT/HCPCS: 76775 ==

== ENCOUNTER → 2018-10-03 | Outpatient (CLI) | payer MEDICARE ==
[~2018-10-03] MED LIST changes: -ACETAMINOPHEN 325 MG TAB PO; +ASPI1TAB PO; +ASPI1TAB20 PO; +ASPI325T PO; +ATEN25TA PO; +FLOM0.4C39 PO; +METO1TAB7 PO; +PRED20TA PO; +SIMV10TA2 PO; +TYLE325T5 PO; +VITA100066 PO; +VITA250T50 PO; +VITATAB11 PO; +nitroquick SL
[2018-10-03 09:53] LABS: BASO % 0.4 % (0.0-1.0); EOS # 0.4 10^3/uL (0.0-0.50); EOS % 4.6 % (0.0-3.0); HEMATOCRIT 45.5 % (42.0-52.0); LYMPH # 1.1 10^3/uL (1.5-4.5); LYMPH % 14.6 % (24.0-44.0); MEAN CORPUSCULAR HEMOGLOBIN 31.9 pg (27.0-33.0); MEAN CORPUSCULAR VOLUME 96.8 fl (80.0-96.0); MONO # 0.7 10^3/uL (0.0-0.8); MONO % 9.1 % (0.0-5.0); NEUTROPHILS # 5.3 10^3/uL (1.8-7.7); NEUTROPHILS % 70.6 % (36.0-66.0); PLATELET COUNT, AUTOMATED 162 10^3/uL (150-450); WHITE BLOOD COUNT 7.6 10^3/uL (4.0-10.0)
[2018-10-03 10:24] LABS: BILIRUBIN,TOTAL 1.5 MG/DL (0.2-1.0); CALCIUM LEVEL 9.3 MG/DL (8.8-10.2); CHOLESTEROL RISK RATIO 2.875 (<5); CREATININE FOR GFR 1.36 MG/DL (0.70-1.30); GLOMERULAR FILTRATION RATE 52.6 (>35); POTASSIUM SERUM 4.5 MEQ/L (3.5-5.1); PROSTATIC SPECIFIC AG MONITOR 6.08 NG/ML (< 4.00); TOTAL PROTEIN 6.8 GM/DL (6.4-8.2)
[2018-10-03 10:30] LABS: TOTAL 25(OH) VITAMIN D 106.5 NG/ML (30.0-100.0)
== END ==
LOC: M LAB 09:11
PROVIDERS: ATTEND Family Medicine
DX: E55.9 Vitamin D deficiency, unspecified (principal); N40.1 Benign prostatic hyperplasia with lower urinary tract symptoms; I25.10 Atherosclerotic heart disease of native coronary artery without angina pectoris

== ENCOUNTER → 2018-11-15 | Outpatient (CLI) | payer MEDICARE ==
[2018-11-15 20:11] LABS: BASO # 0.1 10^3/uL (0.0-0.2); BASO % 0.6 % (0.0-1.0); EOS # 0.2 10^3/uL (0.0-0.50); EOS % 1.5 % (0.0-3.0); HEMATOCRIT 45.8 % (42.0-52.0); HEMOGLOBIN 14.5 g/dl (13.5-17.5); LYMPH # 1.2 10^3/uL (1.5-4.5); LYMPH % 11.2 % (24.0-44.0); MEAN CORPUSCULAR HEMOGLOBIN 31.8 pg (27.0-33.0); MEAN CORPUSCULAR HGB CONC 31.7 g/dl (32.0-36.5); MEAN CORPUSCULAR VOLUME 100.4 fl (80.0-96.0); MONO % 9.4 % (0.0-5.0); NEUTROPHILS % 76.1 % (36.0-66.0); PLATELET COUNT, AUTOMATED 177 10^3/uL (150-450); RED BLOOD COUNT 4.56 10^6/uL (4.30-6.10); WHITE BLOOD COUNT 10.5 10^3/uL (4.0-10.0)
[2018-11-15 20:14] LABS: ALBUMIN 3.9 GM/DL (3.2-5.2); BILIRUBIN,TOTAL 1.8 MG/DL (0.2-1.0); CREATININE FOR GFR 1.43 MG/DL (0.70-1.30); GLOMERULAR FILTRATION RATE 49.7 (>35); MB/CK RELATIVE INDEX 4.31 (< OR =4); TOTAL PROTEIN 6.9 GM/DL (6.4-8.2); TROPONIN I 0.04 NG/ML (< 0.10)
--- NOTE | 2018-11-16 03:29 | REP ---
Clinical: Shortness of breath. Technique: PA and lateral. Comparison: 03/16/2014. Findings: Cardiac silhouette is upper limits of normal. Dual lead pacemaker in stable, satisfactory position. Lung lim demonstrate chronic-appearing interstitial changes. No obvious acute consolidation, effusion, or pneumothorax. Skeletal structures intact. Impression: Chronic stable changes. No obvious acute cardiopulmonary process. Electronically Signed by Francisco Andrews MD 11/16/2018 03:21 A
== END ==
LOC: M WUC 15:44
PROVIDERS: ATTEND Physician Assistant
DX: R06.02 Shortness of breath (principal); Z95.0 Presence of cardiac pacemaker

== ENCOUNTER → 2018-12-08 | Outpatient (CLI) | payer MEDICARE ==
[~2018-12-08] MED LIST changes: +ASPI-1 PO; -ASPI1TAB PO; -ASPI325T PO; +ASPI81TA26 PO
[2018-12-08 17:50] LABS: CALCIUM LEVEL 9.4 MG/DL (8.8-10.2); CREATININE FOR GFR 1.73 MG/DL (0.70-1.30); GLOMERULAR FILTRATION RATE 39.9 (>35); POTASSIUM SERUM 4.8 MEQ/L (3.5-5.1)
== END ==
LOC: M WUC 15:20
PROVIDERS: ATTEND Family Medicine
DX: I50.32 Chronic diastolic (congestive) heart failure (principal)

== ENCOUNTER → 2018-12-27 | Outpatient (CLI) | payer MEDICARE ==
[2018-12-27 16:56] LABS: ALBUMIN 3.8 GM/DL (3.2-5.2); CALCIUM LEVEL 9.3 MG/DL (8.8-10.2); CREATININE FOR GFR 1.54 MG/DL (0.70-1.30); GLOMERULAR FILTRATION RATE 45.5 (>35); PHOSPHORUS LEVEL 3.8 MG/DL (2.5-4.9); POTASSIUM SERUM 4.5 MEQ/L (3.5-5.1)
== END ==
LOC: M WUC 12:50
PROVIDERS: ATTEND Physician Assistant
DX: I11.0 Hypertensive heart disease with heart failure (principal); I50.9 Heart failure, unspecified

== ENCOUNTER → 2019-01-10 | Outpatient (CLI) | payer MEDICARE ==
[2019-01-10 16:48] LABS: ALBUMIN 3.9 GM/DL (3.2-5.2); CALCIUM LEVEL 9.8 MG/DL (8.8-10.2); CREATININE FOR GFR 1.51 MG/DL (0.70-1.30); GLOMERULAR FILTRATION RATE 46.6 (>35); PHOSPHORUS LEVEL 2.9 MG/DL (2.5-4.9)
== END ==
LOC: M WUC 11:30
PROVIDERS: ATTEND Physician Assistant
DX: I50.22 Chronic systolic (congestive) heart failure (principal)

== ENCOUNTER → 2019-01-27 | Outpatient (CLI) | payer MEDICARE ==
--- NOTE | 2019-01-27 10:58 | REP ---
ULTRASOUND ABDOMINAL AORTA: Real-time sonographic evaluation of the abdominal aorta performed and compared to a prior study of 08/08/2018. There is no significant change when compared to that prior study. Proximal to the AP diameter of the abdominal aorta is 2.2 cm. There is an aneurysm of the mid abdominal aorta 4.4 x 3.8 cm unchanged. Aortoiliac stent is again noted. Distal abdominal aorta measures 1.9 x 2.6 cm. Common iliac arteries are somewhat ectatic, right measuring 1.6 x 1.7 cm and left 1.7 x 1.7 cm. The aneurysm extends for a length for approximately 6 cm. IMPRESSION: Stable appearance of abdominal aortic aneurysm, compared to prior study of 08/08/2018. Electronically Signed by Boom Escobar MD 01/27/2019 04:13 P
== END ==
LOC: M RAD 08:03
PROVIDERS: ATTEND Surgery Vascular Surgery
DX: I71.4 Abdominal aortic aneurysm, without rupture (principal)

== ENCOUNTER → 2019-03-08 | Outpatient (CLI) | payer MEDICARE ==
[~2019-03-08] MED LIST changes: +ASPI-524 PO; -ASPI1TAB20 PO
--- NOTE | 2019-03-08 20:50 | REP ---
Clinical: Chronic medical renal disease. Technique: Real time robbins scale and color evaluation using curved array transducer. Findings: Right kidney is normal in reniform shape with increased central sinus fat consistent with chronic medical renal disease. Right kidney measures 10.7 x 5.0 x 5.2 cm and is without hydronephrosis, nephrolithiasis, cystic or renal mass lesion. Left kidney is normal in reniform shape with increased central sinus fat consistent with chronic medical renal disease. Kidney measures 9.8 x 5.0 x 5.0 cm and includes 1.1 cm lower pole cyst. No hydronephrosis, nephrolithiasis, or renal mass lesion. Prostate gland measures 4.7 x 4.4 x 3.1 cm (34 ml). The bladder demonstrates mild wall irregularities and measures up to 2.6 mm thickness. No bladder mass identified. Prevoid bladder measures 9.3 x 9.5 x 9.4 cm (542 ml). Postvoid bladder measures 6.7 x 7.1 x 3.0 cm ( 93 ml). Postvoid residual equals 17.2%. Impression: 1. Findings consistent with chronic medical renal disease. No hydronephrosis. 1.1 cm left renal cyst. The 2. Mild bladder wall thickening likely age-related. Electronically Signed by Francisco Andrews MD 03/08/2019 08:42 P
== END ==
LOC: M RAD 10:57
PROVIDERS: ATTEND Internal Medicine Nephrology
DX: N18.3 Chronic kidney disease, stage 3 (moderate) (principal); I13.0 Hypertensive heart and chronic kidney disease with heart failure and stage 1 through stage 4 chronic kidney disease, or unspecified chronic kidney disease; I71.4 Abdominal aortic aneurysm, without rupture; I50.22 Chronic systolic (congestive) heart failure; N28.1 Cyst of kidney, acquired

== ENCOUNTER → 2019-08-08 | Outpatient (CLI) | payer MEDICARE ==
[~2019-08-08] MED LIST changes: -ASPI-524 PO; +ASPI325T57 PO; -SIMV10TA2 PO; +SIMV10TA21 PO
--- NOTE | 2019-08-08 10:00 | REP ---
ULTRASOUND ABDOMINAL AORTA: Real-time sonographic evaluation of the abdominal aorta performed and compared to a prior study of 01/27/2019. There is no significant change when compared to the prior study. Maximum AP diameter of the proximal abdominal aorta just below the diaphragm is 2.9 cm, at the level of the renal artery is 2.1 cm, infrarenal abdominal aorta 4.0 cm and distally just above the bifurcation 2.1 cm. Common iliac arteries are mildly ectatic, right measuring 1.3 x 1.3 cm and left 1.7 x 1.4 cm. Aortoiliac stent is again visualized. IMPRESSION: Stable infrarenal aneurysm abdominal aorta measuring 4.0 x 3.5 cm in AP and transverse dimensions respectively. Electronically Signed by Boom Escobar MD 08/09/2019 10:33 A
== END ==
LOC: M RAD 08:46
PROVIDERS: ATTEND Physician Assistant
DX: I71.4 Abdominal aortic aneurysm, without rupture (principal)

== ENCOUNTER 2019-08-17 11:42 | Emergency (ER) | payer MEDICARE ==
[~2019-08-17] VITALS: Ht 182.9 cm; Wt 61.4 kg
[2019-08-17] MEDS ORDERED: FURO20TA2 PO (12:16)
[2019-08-17] MEDS ORDERED: ENTR1TAB PO (12:16)
[2019-08-17] MEDS ORDERED: B-12100010 PO (12:16)
[2019-08-17] MEDS ORDERED: VITA500079 PO (12:16)
[2019-08-17] MEDS ORDERED: ELIQ5TAB PO (12:16)
[2019-08-17] MEDS ORDERED: ACETAMINOPHEN 325 MG TAB PO ONE (13:00)
[2019-08-17] MEDS ORDERED: diazePAM 2 MG TAB PO ONE (13:00)
[2019-08-17 13:15] LABS: BASO % 0.3 % (0.0-1.0); EOS # 0.1 10^3/uL (0.0-0.5); EOS % 1.4 % (0.0-3.0); HEMATOCRIT 45.9 % (42.0-52.0); HEMOGLOBIN 14.8 g/dl (13.5-17.5); LYMPH # 0.9 10^3/uL (1.5-5.0); LYMPH % 9.2 % (24.0-44.0); MEAN CORPUSCULAR HEMOGLOBIN 32.7 pg (27.0-33.0); MEAN CORPUSCULAR HGB CONC 32.2 g/dl (32.0-36.5); MEAN CORPUSCULAR VOLUME 101.3 fl (80.0-96.0); MONO # 1.1 10^3/uL (0.0-0.8); MONO % 11.3 % (0.0-5.0); NEUTROPHILS # 7.2 10^3/uL (1.5-8.5); NEUTROPHILS % 77.3 % (36.0-66.0); PLATELET COUNT, AUTOMATED 149 10^3/uL (150-450); RED BLOOD COUNT 4.53 10^6/uL (4.30-6.10); WHITE BLOOD COUNT 9.4 10^3/uL (4.0-10.0)
[2019-08-17 13:38] LABS: ERYTHROCYTE SEDIMENTATION RATE 5 mm/hr (0-20)
[2019-08-17] MEDS ORDERED: ISOVUE-370 76% 100ML VIAL (Q9967) As Ordered ONE (13:43)
[2019-08-17] MEDS ORDERED: NS 500 ML IV ONE (13:45)
--- NOTE | 2019-08-17 15:35 | REP ---
CT neck: 08/17/2019. Indication: Neck pain. Comparison: None. Technique: Axial images of the neck soft tissues were obtained following the administration of 75 ml IV Isovue 370. Findings: Evaluation of the neck soft tissues is suboptimal secondary to lack of arterial contrast. Study is also suboptimal secondary to dental amalgam associated streak artifact and patient motion. There is a ill-defined area of low attenuation in the expected region of the right parotid gland without ductal dilatation detected. The mastoid air cells are clear. No significant lymphadenopathy is detected. Impression: Suboptimal evaluation of the neck soft tissues as described. Suspected parotid region abscess or phlegmon. The prevertebral, retropharyngeal and parapharyngeal spaces are essentially unremarkable given limitations of the study. Electronically Signed by Rc Kamara DO 08/17/2019 03:26 P
[2019-08-17] MEDS ORDERED: AUGM875T28 PO (16:03)
[2019-08-17 16:41] VITALS: BP 118/59
== END 2019-08-17 16:42 | disposition home or self-care (01) ==
LOC: M ED 11:42 → EDBD 11:42 → M ED 16:42
DX: M54.2 Cervicalgia (principal); I10 Essential (primary) hypertension; Z95.0 Presence of cardiac pacemaker; Z95.1 Presence of aortocoronary bypass graft; Z79.82 Long term (current) use of aspirin; Z79.01 Long term (current) use of anticoagulants; Z79.899 Other long term (current) drug therapy; Z88.8 Allergy status to other drugs, medicaments and biological substances
CPT/HCPCS: 36415; 70491; 80047; 85025; 85652; 86140; 96360; 96361; 99284; Q9967

== ENCOUNTER → 2019-09-01 | Outpatient (CLI) | payer MEDICARE ==
[~2019-09-01] MED LIST changes: +AUGM875T28 PO; +B-12100010 PO; +ELIQ5TAB PO; +ENTR1TAB PO; +FURO20TA2 PO; +VITA500079 PO
--- NOTE | 2019-09-01 14:53 | REP ---
Seven views cervical spine: 09/01/2019. Indication: Neck pain. Comparison: New neck CT completed last month. Findings: There is no acute fracture, subluxation or dislocation. There is no instability on the flexion/extension imaging. The prevertebral and additional visualized soft tissues are without acute abnormality. Multilevel degenerative sequelae of the cervical spine are present most pronounced at C5/C6. Impression: No acute osseous injury of the cervical spine. Electronically Signed by Rc Kamara DO 09/01/2019 02:45 P
== END ==
LOC: M WUC 13:49
PROVIDERS: ATTEND Family Medicine
DX: M54.2 Cervicalgia (principal)

== ENCOUNTER → 2019-09-27 | Outpatient (CLI) | payer MEDICARE | LOC: M WUC 09:08 | PROVIDERS: ATTEND Family Medicine | DX: N40.1 Benign prostatic hyperplasia with lower urinary tract symptoms (principal) ==

== ENCOUNTER → 2019-10-09 | Outpatient (CLI) | payer MEDICARE ==
[2019-10-09 11:08] LABS: CALCIUM LEVEL 9.3 MG/DL (8.8-10.2); CREATININE FOR GFR 1.56 MG/DL (0.70-1.30); GLOMERULAR FILTRATION RATE 44.8 (>35); MAGNESIUM LEVEL 2.5 MG/DL (1.8-2.4); POTASSIUM SERUM 4.6 MEQ/L (3.5-5.1)
== END ==
LOC: M WUC 09:16
PROVIDERS: ATTEND Physician Assistant
DX: I50.22 Chronic systolic (congestive) heart failure (principal)

== ENCOUNTER 2019-11-20 09:52 | Emergency (ER) | payer MEDICARE ==
[~2019-11-20] VITALS: Ht 182.9 cm; Wt 59.1 kg
[2019-11-20] MEDS ORDERED: ELIQ2.5T PO (10:26)
[2019-11-20] MEDS ORDERED: LATA0.0015 OU (10:26)
[2019-11-20 11:12] LABS: BASO # 0.1 10^3/uL (0.0-0.2); BASO % 0.8 % (0.0-1.0); EOS # 0.8 10^3/uL (0.0-0.5); EOS % 9.4 % (0.0-3.0); HEMATOCRIT 48.7 % (42.0-52.0); HEMOGLOBIN 15.8 g/dl (13.5-17.5); LYMPH # 0.9 10^3/uL (1.5-5.0); LYMPH % 11.1 % (24.0-44.0); MEAN CORPUSCULAR HEMOGLOBIN 31.8 pg (27.0-33.0); MEAN CORPUSCULAR HGB CONC 32.4 g/dl (32.0-36.5); MONO # 0.7 10^3/uL (0.0-0.8); MONO % 8.6 % (0.0-5.0); NEUTROPHILS # 5.5 10^3/uL (1.5-8.5); NEUTROPHILS % 69.2 % (36.0-66.0); PLATELET COUNT, AUTOMATED 236 10^3/uL (150-450); RED BLOOD COUNT 4.97 10^6/uL (4.30-6.10); WHITE BLOOD COUNT 7.9 10^3/uL (4.0-10.0)
--- NOTE | 2019-11-20 11:15 | REP ---
Clinical: Cough and dyspnea. Comparison: 11/15/2018. Findings: Mediastinum and cardiac silhouette are stable with cardiomegaly and dual lead pacemaker again noted. Diffuse chronic interstitial changes noted (right greater than left). Superimposed right-sided multifocal infiltrates are suggested. Small right pleural effusion cannot be excluded. No pneumothorax. Skeletal structures intact. Impression: Chronic changes with superimposed right-sided infiltrates and possible small right pleural effusion. Electronically Signed by Francisco Andrews MD 11/20/2019 11:06 A
[2019-11-20 11:31] LABS: INR 1.37; PROTHROMBIN TIME 16.6 SECONDS (11.8-14.0)
--- NOTE | 2019-11-20 11:36 | REP ---
Clinical: Unsteady gait. Comparison: 07/12/2015 Findings: Age-related atrophy with periventricular leukomalacia and microvascular ischemic changes are appreciated. The ventricles and sulci are symmetric. Escobar-white differentiation is maintained. There is no evidence for acute intracranial hemorrhage, mass/mass effect, pathology or infarction. No extra-axial fluid collection. Calvarium is intact. Paranasal sinuses and mastoid air cells are clear. Impression: Age related atrophy and microvascular ischemic changes. No acute intracranial hemorrhage, infarction, or mass/mass effect. Electronically Signed by Francisco Andrews MD 11/20/2019 11:27 A
[2019-11-20 11:41] LABS: ALBUMIN 3.4 GM/DL (3.2-5.2); ALT/SGPT 20 U/L (12-78); BILIRUBIN,DIRECT 0.5 MG/DL (0.0-0.2); BILIRUBIN,TOTAL 1.5 MG/DL (0.2-1.0); BLOOD UREA NITROGEN 32 MG/DL (7-18); CALCIUM LEVEL 9.4 MG/DL (8.8-10.2); CARBON DIOXIDE LEVEL 28 MEQ/L (21-32); CHLORIDE LEVEL 107 MEQ/L (98-107); CK-MB VALUE MASS < 1.0 NG/ML (<3.6); CPK CREATINE PHOSPHOKINASE 27 U/L (39-308); CREATININE FOR GFR 1.46 MG/DL (0.70-1.30); GLOMERULAR FILTRATION RATE 48.4 (>35); GLUCOSE, FASTING 104 MG/DL (70-100); NT-PRO BNP 3435 PG/ML (<450); POTASSIUM SERUM 4.3 MEQ/L (3.5-5.1); SODIUM LEVEL 140 MEQ/L (136-145); TOTAL PROTEIN 6.9 GM/DL (6.4-8.2); TROPONIN I 0.02 NG/ML (< 0.10)
[2019-11-20] MEDS ORDERED: NS 1,000 ML IV ONE (12:15)
[2019-11-20 14:37] VITALS: BP 119/62
--- NOTE | 2019-11-21 05:34 | ECGEPIP ---
[facility] - ED Test Date: 2019-11-20 Pat Name: JAEL KAHN Department: Room: - Gender: Male Spiral [place] Winder: : 1930 Requested By: ENEIDA Bay Order Number: [id number] Reading MD: Pedro Bull Measurements Intervals [place] Rate: 81 P: 230 IA: 142 QRS: 221 QRSD: 148 T: 59 QT: 418 QTc: 486 Interpretive Statements ELECTRONIC VENTRICULAR PACEMAKER SIMILAR TO 07/12/15 Electronically Signed on 11-21-2019 5:34:31 EDT by Pedro Bull
== END 2019-11-20 15:03 | disposition home or self-care (01) ==
LOC: M ED 09:52
DX: I95.1 Orthostatic hypotension (principal); Z95.0 Presence of cardiac pacemaker; I25.2 Old myocardial infarction; I10 Essential (primary) hypertension; E78.5 Hyperlipidemia, unspecified; Z95.5 Presence of coronary angioplasty implant and graft; Z95.828 Presence of other vascular implants and grafts; Z87.891 Personal history of nicotine dependence; Z79.82 Long term (current) use of aspirin; Z79.01 Long term (current) use of anticoagulants; Z79.899 Other long term (current) drug therapy; Z88.8 Allergy status to other drugs, medicaments and biological substances